=== PATIENT | female | born 1950 | race Caucasian/White ===

== ENCOUNTER 2023-12-23 08:34 | Outpatient (REF) | payer MEDICARE, SELFPAY ==
[2023-12-23 11:24] LABS: MANUAL DIFF FLAG NO
[2023-12-23 11:28] LABS: Basophils Absolute Auto 0.1 X10*3/uL (0.0-0.2); Basophils Percent Auto 0.6 % (0-2); Eosinophils Absolute Auto 0.2 X10*3/uL (0.0-0.4); Eosinophils Percent Auto 2.3 % (0-4); Hemoglobin 11.3 g/dl (12.0-16.0); Imm Gran Abs Auto 0.03 X10*3/uL (0.00-0.03); Imm Gran Pct Auto 0.3 % (0.0-0.4); Lymphocytes Absolute Auto 2.4 X10*3/uL (1.2-4.9); Lymphocytes Percent Auto 27.5 % (20-40); Mean Corpuscular HGB Conc 30.5 g/dl (31.0-35.0); Mean Corpuscular Hemoglobin 26.7 pg (27.0-33.0); Mean Corpuscular Volume 87.3 fL (80.0-98.0); Mean Platelet Volume 11.9 fL (9.4-12.3); Monocytes Absolute Auto 0.9 X10*3/uL (0.1-1.2); Monocytes Percent Auto 10.6 % (2-11); Neutrophils Absolute Auto 5.1 x10*3/uL (2.0-8.3); Neutrophils Percent Auto 58.7 % (45-73); Platelet Count 294 X10*3/uL (160-400); Red Blood Count 4.24 X10*6/uL (4.20-5.50); Red Cell Distribution Width 15.2 % (11.0-16.0); White Blood Count 8.6 X10*3/uL (4.8-10.8)
[2023-12-23 11:35] LABS: Estimated Average Glucose 111 mg/dL; Hemoglobin A1c % 5.5 % (<6.0)
[2023-12-23 11:44] LABS: Alanine Aminotransferase 12 U/L (0-31); Albumin Level 3.7 g/dL (3.5-5.0); Alkaline Phosphatase 118 U/L (39-117); Anion Gap 13 (12-20); Aspartate Amino Transferase 16 U/L (5-31); Bilirubin Direct 0.2 mg/dL (0.0-0.5); Bilirubin Total 0.4 mg/dL (0.0-1.0); Blood Urea Nitrogen 16 mg/dL (9-16); Calcium 9.5 mg/dL (8.4-10.2); Carbon Dioxide 28 mmol/L (22-29); Chloride 105 mmol/L (96-108); Cholesterol 127 mg/dL (<200); Estimated Glomerular Filt Rate > 60; Glucose Random 88 mg/dL (60-115); HDL Cholesterol 46 mg/dL (>40); LDL Cholesterol Calculated 62 mg/dL (<100); Potassium 4.2 mmol/L (3.3-5.1); Sodium 142 mmol/L (135-145); Total Protein 6.9 g/dL (6.5-8.0); Triglycerides 95 mg/dL (<150)
[2023-12-23 12:03] LABS: Free T4 (Free Thyroxine) 0.95 ng/dL (0.71-1.85); Thyroid Stimulating Hormone 3.06 uIU/mL (0.32-4.0); Vitamin D 25-OH Total 22.4 ng/mL (>30)
[2023-12-23 12:20] LABS: Vitamin B12 1410 pg/mL (200-900)
== END 2023-12-23 08:35 | disposition home or self-care (01) ==
LOC: HO.HHCL 08:34
PROVIDERS: Visit Provider Family Medicine
DX: I10 Essential (primary) hypertension (principal); E53.8 Deficiency of other specified B group vitamins; Z13.1 Encounter for screening for diabetes mellitus
CPT/HCPCS: 36415; 80048; 80061; 80076; 82306; 82607; 83036; 84439; 84443; 85025

== ENCOUNTER 2024-02-01 11:40 | Outpatient (REF) | payer MEDICARE, SELFPAY ==
--- NOTE | ~2024-02-01 | XR_ITS ---
EXAMINATION: XR LUMBOSACRAL SPINE CLINICAL INFORMATION: Back pain. COMPARISON: Lumbar spine radiographs dated 01/30/2016. TECHNIQUE: Three views of the lumbosacral spine. FINDINGS: Normal vertebral body alignment. The lumbar lordosis is maintained. No acute fracture or subluxation. No loss of vertebral body height. Mild multilevel loss of intervertebral disc and small endplate osteophytes, slightly progressed. No concerning lytic or blastic osseous lesion. No abnormal soft tissue calcification. Bilateral facet arthropathy at L4-L5 and L5-S1, slightly progressed. XR/XR lumbar spine 2-3V IMPRESSION: 1. Mild multilevel degenerative disc disease, slightly progressed. 2. Bilateral facet arthropathy at L4-L5 and L5-S1, slightly progressed. Electronically signed by: Mark Reeves MD 02/21/2024 09:13 PM EDT
== END 2024-02-01 11:41 | disposition home or self-care (01) ==
LOC: HO.HHCX 11:40
PROVIDERS: Visit Provider Family Medicine
DX: M54.50 Low back pain, unspecified (principal); G89.29 Other chronic pain
CPT/HCPCS: 72100

== ENCOUNTER 2024-11-06 09:29 | Outpatient (REF) | payer MEDICARE, SELFPAY ==
--- NOTE | ~2024-11-06 | XR_ITS ---
EXAMINATION: XR KNEE, RIGHT CLINICAL INFORMATION: right knee pain after a fall about a month ago. COMPARISON: 01/30/2016. TECHNIQUE: Four views of the right knee. FINDINGS: No fracture, healing fracture, dislocation, or suspicious bone lesion. Normal alignment. Severe medial compartment joint space narrowing with subchondral sclerosis, [id number] appearance, and marginal osteophytic spurring. Mild widening of the lateral compartment with large marginal osteophytes present. There is spurring of the tibial spines. Mild varus angulation of the joint. Moderate to severe osteoarthrosis in the patellofemoral joint. There is a moderate sized suprapatellar joint effusion. There is no soft tissue abnormality. XR/XR knee RT 4V IMPRESSION: 1. Moderate to severe tricompartmental osteoarthrosis of the knee, most significant medial compartment. 2. Moderate size joint effusion. Electronically signed by: Binu Baker MD 11/06/2024 11:05 AM EDT
--- OUTSIDE RECORDS SUMMARY | 2024-11-06 10:10 | XMS_ITS | Encounter Summary ---
Author Organization [employer] Address [address] [facility] 7 [place] [address] Care Team Providers Care Food Checker Name Role Phone Venus Mcmillan DO Primary Care Provider [phone] Reason for Visit * Reason Onset Date Comments Med Refill 02/01/2023 Encounter Details Date Type Department Care Team (Late st Contact Info) Description 02/01/2023 Telephone [facility] [address], [place] [phone] Venus Mcmillan DO [address], [place] [phone] Med Refill Social History Tobacco Use Types Packs/Day Years Used Date Smoking Tobacco: Never Smokeless Tobacco: Never Depression Answer Date Recorded Patient Health Questionnaire-9 Score 5 12/09/2022 Depression Answer Date Recorded Patient Health Questionnaire-2 Score 1 12/09/2022 Comments Unknown Sex and Gender Information Value Date Recorded Sex Assigned at Female 04/06/2022 10:14 AM EDT Legal Sex Female 10:14 AM EDT Gender Identity Female 04/06/2022 10:14 AM EDT Sexual Orientation Straight 04/06/2022 10 :14 AM EDT documented as of this encounter Miscellaneous Notes * Telephone Encounter - Marlene Crump - 02/01/2023 10:00 AM EDT Tc from patient requesting a med refill on medication traMADol (Ultram) [address] Mcmillan documented in this encounter Plan of Treatment Not on file documented as of this encounter Visit Diagnoses Not on filedocumented in this encounter Additional Health Concerns Assessment Noted Time PHQ-9 Depression Total Score: 5 12/10/19 23 12:40 PM EDT documented as of this encounter Care Teams Food Checker Relationship Specialty Start Date End Date Venus Mcmillan DO [address] [place] [address] PCP - General Family Medicine 06/07/18 documented as of this encounter
== END 2024-11-06 09:30 | disposition home or self-care (01) ==
LOC: HO.HHCX 09:29
PROVIDERS: Visit Provider Internal Medicine
DX: M25.561 Pain in right knee (principal); G89.29 Other chronic pain
CPT/HCPCS: 73564

== ENCOUNTER → 2024-11-06 09:30 | Outpatient (BNV) | payer MEDICARE, SELFPAY | PROVIDERS: Visit Provider Radiology Diagnostic Radiology | DX: M17.11 Unilateral primary osteoarthritis, right knee (principal) | CPT/HCPCS: 73564 ==

== ENCOUNTER 2024-12-26 08:00 | Outpatient (REF) | payer OTHER, SELFPAY ==
--- OUTSIDE RECORDS SUMMARY | 2024-12-26 08:03 | XMS_ITS | Clinical Summary ---
Author Organization [facility] Address [address] [place] [address] Phone Care Team Providers Care Cementer Machine Joiner Name Role Phone Venus Mcmillan DO Primary Care Provider [phone] Allergies No known active allergies Medications No known medications Medical History Medical History Date Comments Disease of thyroid gland Social History Tobacco Use Types Packs/Day Years Used Date Smoking Tobacco: Never Smokeless Tobacco: Never Tobacco Cessation:Counseling Given: Not Answered Comments Unknown Sex and Gender Information Value Date Recorded Sex Assigned at Female 06/06/2024 9:19 PM EST Legal Sex Female 11:44 PM EST Gender Identity Female 06/06/2024 9:19 PM EST Sexual Orientation Straight 06/06/2024 9: 19 PM EST Obstetrics History Last Filed Vital Signs Vital Sign Reading Time Taken Comments Blood Pressure 149/65 06/06/2024 3:28 PM EST Pulse 74 06/06/2024 3:28 PM EST Temperature 36.8 C (98.2 F) 06/06/2024 3:28 PM EST Respiratory Rate 17 06/06/2024 3:28 PM EST Oxygen Saturation 99% 06/06/2024 3:28 PM EST Inhaled Oxygen Concentration - - Weight 99.8 kg (220 lb) 06/06/2024 3:28 PM EST Height 162.6 cm (5' 4 ) 06/06/2024 3:28 PM EST Body Mass Index 37.76 06/06/2024 3:28 PM EST Plan of Treatment Health Maintenance Due Date Last Done Comments Breast Cancer Screening 07/07/2021 07/07/2019 Colorectal Cancer Screening: Colonoscopy 05/10/2022 Falls Risk Assessment 05/10/2022 Hepatitis C Screening 05/10/2022 Medicare Annual Wellness Visit 05/10/2022 Osteoporosis Screening (Bone Density Screening) 05/10/2022 Social Influencers of Health Screening 05/10/2022 COVID-19 Vaccine ( - season) 2024 03/31/2022, 10/18/2020, 10/05/2020 Zoster Vaccines (3 of 3) 02/17/2024 12/23/2023, 04/07 Hypertension/CHF/CAD Annual BMP Blood Test 06/06/2024 Depression Screening 06/07/2024 Influenza Vaccine (#1) 2025 , 03/31/2022, 06/13/2020, Additional history exists RSV Immunization Adult Patients (1 - 1-dose 75+ series) 2027 Cholesterol Screening (Lipid Panel) 12/22/2028 12/23/2023 DTaP,Tdap,and Td Vaccines (4 - Td or Tdap) 12/09/2032 12/09/2022, 10/31/2010, 04/08/2000 Hepatitis B Vaccines Completed 12/09/2022, 03/29/2008, 10/14/2007 Pneumococcal Vaccine: 50+ Years Completed 12/23/2023, 06/13/2020, 03/25/2018 HIB Vaccines Aged Out No longer eligi ble based on patient's age to complete this topic HPV Vaccines Aged Out No longer eligi ble based on patient's age to complete this topic Hepatitis A Vaccines Aged Out No long er eligible based on patient's age to complete this topic IPV Vaccines Aged Out No longer eligi ble based on patient's age to complete this topic MMR Vaccines Aged Out No longer eligi ble based on patient's age to complete this topic Meningococcal ACWY Vaccine Aged Out N o longer eligible based on patient's age to complete this topic Meningococcal B Vaccine Aged Out No l onger eligible based on patient's age to complete this topic RSV Immunization Patients Under 20 months Aged Out No longer eligible based on patient's age to complete this topic Varicella Vaccines Aged Out No longer eligible based on patient's age to complete this topic Insurance [facility]IC[facility] Member Subscriber Plan / Payer (Ef fective 2018-Present) Name:Dora Lunsford Relation to Subscriber:Self Name:Dora Lunsford Payer ID:[id number] Group ID:[id number] Type:Not on file Address: [place] [address] [address] [id number] Care Teams Cementer Machine Joiner Relationship Specialty Start Date End Date Venus Mcmillan DO [address] [place] [address] PCP - General 12/28/16
--- OUTSIDE RECORDS SUMMARY | 2024-12-26 08:03 | XMS_ITS | Encounter Summary ---
Author Organization [employer] Address [address] [facility] [address] [place] [address] Care Team Providers Care Operations Coordinator Name Role Phone Venus Mcmillan DO Primary Care Provider [phone] Reason for Visit * Reason Comments Med Refill Encounter Details Date Type Department Care Team ([facility] st Contact Info) Description 02/18/2024 Refill [facility] [address] [place], [place] [phone] Venus Mcmillan DO [address] [place] [address] Chronic left shoulder pain Social History Tobacco Use Types Packs/Day Years Used Date Smoking Tobacco: Never Smokeless Tobacco: Never Depression Answer Date Recorded Patient Health Questionnaire-9 Score 8 02/01/2024 Patient Health Questionnaire-9 Score 8 02/01/2024 Last PHQ-9: Questionnaire Data Not on file 0 02/01/2024 Housing Stability Answer Date Recorded What is your housing situation today? I have sloane guillory 01/13/[address] you li ve. Do you have problems with any of the following? None of the above 01/13/2024 Food Insecurity Answer Date Recorded Within the past 12 months, y ou worried that your food would run out before you got money to buy more: Never True 01/13/2024 Within the past 12 months,th e food you bought just didn't last and you didn't have enough money to get more: Never True 01/2024 Transportation Answer Date Recorded In the past 12 months, has l ack of transportation kept you from medical appts, meetings, work or from getting things needed for daily living? No 01/13/2024 Utilities Answer Date Recorded In the past 12 months, has t he electric, gas, oil or water company threatened to shut off services in your home? No 01/13/2024 Depression Answer Date Recorded Patient Health Questionnaire-2 Score 3 02/01/2024 Internet Access Answer Date Recorded Internet Access Q1 I am not sure 02/04/2024 Internet Access Q2 Internet/Wi-Fi access is not available where I live 02/04/2024 Comments Unknown Sex and Gender Information Value Date Recorded Sex Assigned at Female 04/06/2022 10:14 AM EDT Legal Sex Female 10:14 AM EDT Gender Identity Female 04/06/2022 10:14 AM EDT Sexual Orientation Straight 04/06/2022 10 :14 AM EDT documented as of this encounter Plan of Treatment Upcoming Encounters Date Type Department Care Team (Late st Contact Info) Description 03/09/2025 9:00 AM EDT Telemedicine [facility] [address] [place] [id number] Jaylyn Guevara, RN documented as of this encounter Goals Goal Patient Goal Type Associated Problems Recent Progress Patient-Stated? Author Blood Pressure < 150/90 Blood Pressure 144/78( 025 1:14 PM EDT) No Aly Smith documented as of this encounter Visit Diagnoses Diagnosis Chronic left shoulder pain Pain in joint, shoulder region documented in this encounter Additional Health Concerns Assessment Noted Time PHQ-9 Depression Total Score: 8 02/01/20 24 10:56 AM EDT documented as of this encounter Care Teams Operations Coordinator Relationship Specialty Start Date End Date Venus Mcmillan DO [address] [place] [id number] PCP - General Family Medicine 06/07/18 documented as of this encounter
[2024-12-26 11:37] LABS: Hematocrit 35.4 % (37.0-47.0); Hemoglobin 10.9 g/dl (12.0-16.0); Mean Corpuscular HGB Conc 30.8 g/dl (31.0-35.0); Mean Corpuscular Hemoglobin 27.5 pg (27.0-33.0); Mean Corpuscular Volume 89.2 fL (80.0-98.0); NRBC Abs Auto 0.000 X10*3/uL (0.0-0.012); NRBC Pct Auto 0.0 /100WBC (0.0-0.2); Platelet Count 264 X10*3/uL (160-400); Red Blood Count 3.97 X10*6/uL (4.20-5.50); White Blood Count 10.0 X10*3/uL (4.8-10.8)
[2024-12-26 11:44] LABS: Hemoglobin A1C 105.4320 umol/L; Total Hemoglobin (HGBA1C) 2911.3814 umol/L
[2024-12-26 11:51] LABS: Alanine Aminotransferase 20 U/L (0-31); Albumin Level 3.8 g/dL (3.5-5.0); Alkaline Phosphatase 124 U/L (39-117); Anion Gap 12 (12-20); Aspartate Amino Transferase 25 U/L (5-31); Blood Urea Nitrogen 15 mg/dL (9-16); Calcium 9.0 mg/dL (8.4-10.2); Carbon Dioxide 27 mmol/L (22-29); Chloride 108 mmol/L (96-108); Cholesterol 113 mg/dL (<200); Estimated Glomerular Filt Rate > 60; HDL Cholesterol 46 mg/dL (>40); Iron 50 mcg/dL (30-160); Percent Iron Saturation 16 % (15-50); Potassium 4.7 mmol/L (3.3-5.1); Sodium 142 mmol/L (135-145); Total Iron Binding Capacity 306 mcg/dL (228-428); Total Protein 6.5 g/dL (6.5-8.0); Triglycerides 91 mg/dL (<150); Unsaturated Iron Binding 256 ug/dL
[2024-12-26 12:08] LABS: Ferritin 76 ng/mL (10-250); Free T4 (Free Thyroxine) 1.24 ng/dL (0.71-1.85); Thyroid Stimulating Hormone 5.38 uIU/mL (0.32-4.0)
[2024-12-26 12:18] LABS: Folate 6.7 ng/mL (> or = 4.0); Vitamin B12 1811 pg/mL (200-900)
[2024-12-26 12:19] LABS: Microalbum/Creatinine Ratio Ur 8.6 ug/mg cr (<30)
== END 2024-12-26 08:01 | disposition home or self-care (01) ==
LOC: HO.HHCL 08:00
PROVIDERS: PCP Family Medicine; Visit Provider Family Medicine
DX: Z00.00 Encounter for general adult medical examination without abnormal findings (principal); I10 Essential (primary) hypertension; I67.89 Other cerebrovascular disease; E78.49 Other hyperlipidemia; E53.8 Deficiency of other specified B group vitamins; R73.03 Prediabetes; F32.A Depression, unspecified; E03.9 Hypothyroidism, unspecified; D64.9 Anemia, unspecified; M15.9 Polyosteoarthritis, unspecified; R00.2 Palpitations
CPT/HCPCS: 36415; 80048; 80061; 80076; 82043; 82306; 82570; 82607; 82728; 82746; 83036; 83540; 84439; 84443; 85027